=== PATIENT | female | born 1955 | race Caucasian/White ===

== ENCOUNTER 2020-09-19 14:59 | Emergency (ER) | payer OTHER ==
[~2020-09-19] VITALS: Ht 180.3 cm; Wt 110.4 kg
--- NOTE | 2020-09-19 16:02 | NUR ---
Pt refused ice pack
[2020-09-19 16:35] VITALS: BP 137/75
== END 2020-09-19 17:03 | disposition home or self-care (01) ==
LOC: ED 15:30
DX: M79.661 Pain in right lower leg (principal); M79.89 Other specified soft tissue disorders; Z87.891 Personal history of nicotine dependence
CPT/HCPCS: 99284

== ENCOUNTER 2020-12-13 12:34 | Outpatient (CLI) | payer OTHER | END 2020-12-13 23:59 | disposition home or self-care (01) | LOC: CFH 12:34 | PROVIDERS: ATTEND Family Medicine | DX: Z12.31 Encounter for screening mammogram for malignant neoplasm of breast (principal) | CPT/HCPCS: 77063; 77067 ==